=== PATIENT | male | born 1970 | race Caucasian/White ===

== ENCOUNTER → 2016-11-09 | Outpatient (CLI) | payer OTHER | END | disposition home or self-care (01) | LOC: GMAJ 10:15 | PROVIDERS: ATTEND Family Medicine | DX: Z12.5 Encounter for screening for malignant neoplasm of prostate (principal) ==

== ENCOUNTER → 2017-07-03 | Outpatient (CLI) | payer BC ==
--- NOTE | 2017-07-05 08:09 | US ---
EXAM DESCRIPTION: Soft Tissue,Extremity CLINICAL HISTORY: 47 years Male, OTHER SPECIFIED JOINT DISORDERS-MASS LT KNEE COMPARISON: None. FINDINGS: Behind the left knee in the popliteal fossa a heterogeneous mixed isoechoic and hypoechoic wider than tall nodule beginning along the undersurface of the dermis and extending in the subcutaneous tissue is present and measures 1.5 x 0.7 x 1.2 cm. A tract or neck extending towards the joint space is not apparent in this is not felt to represent a complicated or debris-filled popliteal cyst. A subcutaneous skin nodule or debris-filled sebaceous cyst would be considerations. There is minimal vascularity at the margins of this but the internal structure is essentially avascular. An inflamed enlarged lymph node would be a consideration. This should be considered a solid dermal or subcutaneous nodule rather than related to the knee joint. IMPRESSION: Heterogeneous mixed isoechoic and hypoechoic nodule that appears solid in the subcutaneous tissues along the undersurface of the dermis left popliteal fossa 1.5 cm in maximal diameter. A neck were tracking towards the popliteal fossa to suggest a popliteal cyst is not apparent. Differential considerations would include primarily dermal and subcutaneous nodules including an enlarged lymph node or a small hematoma or complicated sebaceous or skin cyst. Consider surgical or dermatologic consultation. Electronically signed by: Arnulfo More MD 07/05/2017 8:08 AM [facility]
== END ==
LOC: US 15:44
PROVIDERS: ATTEND Family Medicine
DX: M25.862 Other specified joint disorders, left knee (principal)

== ENCOUNTER → 2018-03-11 | Outpatient (CLI) | payer BC | LOC: GMAJ 14:27 | PROVIDERS: ATTEND Family Medicine | DX: Z00.00 Encounter for general adult medical examination without abnormal findings (principal) ==